=== PATIENT | female | born 1960 | race Caucasian/White ===

== ENCOUNTER 2016-12-13 15:57 | Emergency (ER) | payer OTHER ==
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
[2016-12-13] MEDS ORDERED: NS 1,000 ML IV ONE (17:59)
[2016-12-13] MEDS ORDERED: fentaNYL 100 MCG/2 ML INJ IVP ONE ×2 (18:01→19:12)
[2016-12-13] MEDS ORDERED: IOPAMIDOL (ISOVUE-300) 100 ML BTL ONE (18:43)
[2016-12-13 20:04] VITALS: BP 110/86; PULSE 80; RESP 17; TEMP 98.1; O2SAT 92
== END 2016-12-13 20:07 | disposition home or self-care (01) ==
DX: S22.41XA Multiple fractures of ribs, right side, initial encounter for closed fracture (principal); S01.81XA Laceration without foreign body of other part of head, initial encounter; I10 Essential (primary) hypertension; R11.10 Vomiting, unspecified; Z87.891 Personal history of nicotine dependence; Z79.84 Long term (current) use of oral hypoglycemic drugs; V18.0XXA Pedal cycle driver injured in noncollision transport accident in nontraffic accident, initial encounter; Y99.8 Other external cause status; Y93.89 Activity, other specified
CPT/HCPCS: 82947-QW; 96374; J3010; Q9967